=== PATIENT | female | born 1995 | race Caucasian/White ===

== ENCOUNTER 2017-11-22 09:55 | Emergency (ER) | payer MEDICAID ==
[~2017-11-22] VITALS: Ht 165.1 cm; Wt 88.5 kg
[~2017-11-22 09:55] MED LIST: AUGMENTIN 875-1 EACH PO; CIPRO500 MG PO; CONCERTA18 MG PO; HYDROCODONE-AP1 EAC6 PO; HYDROXYZINE HCL10 M1 PO; IBUPROFEN 600600 M1 PO; LEVAQUIN 500 M500 M2 PO; NOHOMEMEDICATIONS; NORCO 5-325 TA1 EACH PO; PYRIDIUM100 M1 PO; ROBAXIN500 MG PO; SINGULAIR 10 MG10 MG PO; TESSALON PERLE100 MG PO; TRAMADOL 50 MG50 MG PO; TRILEPTAL150 MG PO; ULTRAM 50MG TAB50 MG PO; ZANTAC 7575 MG PO; [UNRECOGNIZED DRUG - OTHER]
[2017-11-22 10:56] LABS: INFLUENZA A ANTIGEN None Detected (None Detect); INFLUENZA B ANTIGEN None Detected (None Detect)
[2017-11-22] MEDS ORDERED: ALLEGRA-D 12 H1 EAC1 PO (11:01)
[2017-11-22 11:40] VITALS: BP 127/89
== END 2017-11-22 11:41 | disposition home or self-care (01) ==
LOC: M.ERS 09:55
PROVIDERS: Emergency Medicine Emergency Medical Services
DX: J06.9 Acute upper respiratory infection, unspecified (principal); B87.89 Myiasis of other sites; J32.9 Chronic sinusitis, unspecified; J45.909 Unspecified asthma, uncomplicated; F10.99 Alcohol use, unspecified with unspecified alcohol-induced disorder; Z86.59 Personal history of other mental and behavioral disorders; Z98.890 Other specified postprocedural states; Z87.19 Personal history of other diseases of the digestive system; Z88.6 Allergy status to analgesic agent; Z91.018 Allergy to other foods; Z88.8 Allergy status to other drugs, medicaments and biological substances; Z87.891 Personal history of nicotine dependence

== ENCOUNTER 2017-12-30 14:55 | Emergency (ER) | payer OTHER, MEDICAID ==
[~2017-12-30] VITALS: Ht 165.1 cm; Wt 88.5 kg
[~2017-12-30 14:55] MED LIST changes: +ALLEGRA-D 12 H1 EAC1 PO
[2017-12-30 14:58] VITALS: BP 130/71
[2017-12-30] MEDS ORDERED: BUTALB-APAP-CA1 EACH PO (15:30)
[2017-12-30] MEDS ORDERED: AFRIN15 ML NASAL (15:30)
[2017-12-30] MEDS ORDERED: AMOXICILLIN 50500 MG PO (15:30)
== END 2017-12-30 15:37 | disposition home or self-care (01) ==
LOC: M.ERS 14:55
DX: J01.00 Acute maxillary sinusitis, unspecified (principal); J45.909 Unspecified asthma, uncomplicated; Z90.49 Acquired absence of other specified parts of digestive tract; Z98.890 Other specified postprocedural states; Z91.018 Allergy to other foods; Z88.6 Allergy status to analgesic agent; Z88.2 Allergy status to sulfonamides; Z88.8 Allergy status to other drugs, medicaments and biological substances; Z87.891 Personal history of nicotine dependence

== ENCOUNTER 2018-03-09 21:08 | Emergency (ER) | payer OTHER, MEDICAID ==
[~2018-03-09] VITALS: Ht 165.1 cm; Wt 88.5 kg
[~2018-03-09 21:08] MED LIST changes: +AFRIN15 ML NASAL; +AMOXICILLIN 50500 MG PO; +BUTALB-APAP-CA1 EACH PO
[2018-03-09] MEDS ORDERED: TRAMADOL 50 MG50 MG PO (21:55)
[2018-03-09 22:03] VITALS: BP 130/71
== END 2018-03-09 22:06 | disposition home or self-care (01) ==
LOC: M.ERS 21:08
DX: M25.561 Pain in right knee (principal); J45.909 Unspecified asthma, uncomplicated; Z91.018 Allergy to other foods; Z88.6 Allergy status to analgesic agent; Z88.2 Allergy status to sulfonamides; Z88.1 Allergy status to other antibiotic agents; Z87.891 Personal history of nicotine dependence

== ENCOUNTER 2018-03-10 05:16 | Emergency (ER) | payer OTHER ==
[~2018-03-10] VITALS: Ht 165.1 cm; Wt 88.5 kg
[2018-03-10 05:23] VITALS: BP 133/79
== END 2018-03-10 05:41 | disposition home or self-care (01) ==
LOC: M.ERS 05:16
DX: T74.21XA Adult sexual abuse, confirmed, initial encounter (principal); J45.909 Unspecified asthma, uncomplicated; Z87.891 Personal history of nicotine dependence; Z90.49 Acquired absence of other specified parts of digestive tract; Z88.1 Allergy status to other antibiotic agents; Z88.8 Allergy status to other drugs, medicaments and biological substances; Z91.018 Allergy to other foods; Y08.89XA Assault by other specified means, initial encounter; Y93.89 Activity, other specified; Y92.89 Other specified places as the place of occurrence of the external cause; Y99.8 Other external cause status

== ENCOUNTER 2018-04-04 21:30 | Emergency (ER) | payer OTHER, MEDICAID ==
[~2018-04-04] VITALS: Ht 165.1 cm; Wt 79.8 kg
[2018-04-04 22:07] LABS: ABSOLUTE BASOPHILS 0.1 thou/uL (0.0-0.2); ABSOLUTE EOSINOPHILS 0.1 thou/uL (0.0-0.7); ABSOLUTE LYMPHOCYTES 1.8 thou/uL (0.8-5.3); ABSOLUTE MONOCYTES 0.7 thou/uL (0.0-1.2); ABSOLUTE NEUTROPHILS 4.5 thou/uL (1.6-8.1); BASOPHILS 1.4 %; EOSINOPHILS 1.5 %; HEMATOCRIT 39.4 % (37.0-47.0); HEMOGLOBIN 13.1 gm/dL (12.0-15.0); LYMPHOCYTES 25.1 %; MCH 30.1 pg (26.0-34.0); MCHC 33.3 g/dL (28.0-37.0); MCV 90.3 fL (80.0-100.0); MONOCYTES 9.7 %; MPV 9.2 fl. (7.2-11.1); NUCLEATED RBCS 0 /100WBC; PLATELET COUNT* 170 thou/uL (150-400); POLYS 62.3 %; RBC 4.36 mil/uL (4.20-5.00); RDW-CV 13.3 % (10.5-14.5); WBC 7.3 thou/uL (4.0-11.0)
[2018-04-04 22:17] LABS: CALCIUM 8.7 mg/dL (8.5-10.1); CREATININE 0.9 mg/dL (0.6-1.3); POTASSIUM 4.1 mmol/L (3.5-5.1)
[2018-04-04 22:21] LABS: ALBUMIN 3.6 g/dL (3.4-5.0); TOTAL BILIRUBIN 0.2 mg/dL (<0.1-1.0); TOTAL PROTEIN 7.7 g/dL (6.4-8.2)
[2018-04-04 23:04] LABS: URINE BILIRUBIN NEGATIVE (Negative); URINE BLOOD TRACE (Negative); URINE CLARITY SL CLOUDY; URINE COLOR YELLOW; URINE GLUCOSE-RANDOM NEGATIVE (Negative); URINE KETONES NEGATIVE (Negative); URINE LEUKOCYTES 2+ (Negative); URINE NITRITE POSITIVE (Negative); URINE PROTEIN NEGATIVE (Negative); URINE UROBILINOGEN 0.2 E.U./dl (0.2-1.0)
[2018-04-04 23:12] LABS: BACTERIA >30 Many /HPF (None Seen); MUCUS None Seen strn/LPF (None Seen); SQUAMOUS >10 Many /LPF (0-3); URINE WBC >25 Many /HPF (0-5)
[2018-04-04 23:13] LABS: CASTS None Seen /LPF (None Seen); CRYSTALS None Seen /LPF (None Seen); URINE RBC 0-2 Rare /HPF (0-2); WBC CLUMPS Few (None Seen)
[2018-04-05] MEDS ORDERED: CIPRO500 MG PO (00:48)
[2018-04-05] MEDS ORDERED: HYDROCODONE-AP1 EAC6 PO (00:48)
[2018-04-05] MEDS ORDERED: ZOFRAN ODT4 MG PO (00:48)
[2018-04-05 01:13] VITALS: BP 157/87
== END 2018-04-05 01:17 | disposition home or self-care (01) ==
LOC: M.ERS 21:30
PROVIDERS: Physician Assistant
DX: N39.0 Urinary tract infection, site not specified (principal); J45.909 Unspecified asthma, uncomplicated; Z90.49 Acquired absence of other specified parts of digestive tract; Z88.1 Allergy status to other antibiotic agents; Z88.8 Allergy status to other drugs, medicaments and biological substances; Z91.018 Allergy to other foods; Z87.891 Personal history of nicotine dependence

== ENCOUNTER 2018-05-01 01:43 | Emergency (ER) | payer OTHER, MEDICAID ==
[~2018-05-01] VITALS: Ht 165.1 cm; Wt 80.3 kg
[~2018-05-01 01:43] MED LIST changes: +ZOFRAN ODT4 MG PO
[2018-05-01 01:56] LABS: URINE BILIRUBIN NEGATIVE (Negative); URINE BLOOD TRACE (Negative); URINE CLARITY CLEAR; URINE COLOR YELLOW; URINE GLUCOSE-RANDOM NEGATIVE (Negative); URINE KETONES NEGATIVE (Negative); URINE LEUKOCYTES-REFLEX 1+ (Negative); URINE NITRITE-REFLEX NEGATIVE (Negative); URINE PROTEIN NEGATIVE (Negative); URINE SPECIFIC GRAVITY 1.015 (1.005-1.030); URINE UROBILINOGEN 0.2 E.U./dl (0.2-1.0)
[2018-05-01 02:16] LABS: CASTS None Seen /LPF (None Seen); SQUAMOUS 0-3 Few /LPF (0-3)
[2018-05-01 02:17] LABS: CRYSTALS None Seen /LPF (None Seen); URINE RBC 3-10 Few /HPF (0-2)
[2018-05-01] MEDS ORDERED: ACETAMINOPHEN-1 EAC1 PO (04:09)
[2018-05-01] MEDS ORDERED: CARAFATE 1 GM TA1 GM PO (04:09)
[2018-05-01] MEDS ORDERED: KEFLEX500 M2 PO (04:17)
[2018-05-01 04:20] VITALS: BP 108/59
== END 2018-05-01 04:22 | disposition home or self-care (01) ==
LOC: M.ERS 01:43
PROVIDERS: Emergency Medicine
DX: K29.70 Gastritis, unspecified, without bleeding (principal); N39.0 Urinary tract infection, site not specified; Z87.891 Personal history of nicotine dependence; Z88.1 Allergy status to other antibiotic agents; Z88.8 Allergy status to other drugs, medicaments and biological substances; Z91.018 Allergy to other foods

== ENCOUNTER 2018-05-04 20:45 | Emergency (ER) | payer OTHER ==
[~2018-05-04] VITALS: Ht 165.1 cm; Wt 80.3 kg
[~2018-05-04 20:45] MED LIST changes: +ACETAMINOPHEN-1 EAC1 PO; +CARAFATE 1 GM TA1 GM PO; +KEFLEX500 M2 PO
[2018-05-04 20:49] VITALS: BP 121/71
[2018-05-04] MEDS ORDERED: PEPCID20 MG (20:54)
[2018-05-04] MEDS ORDERED: ACETAMINOPHEN-1 EAC1 PO (21:00)
[2018-05-04] MEDS ORDERED: AMOXICILLIN 50500 MG PO (21:00)
== END 2018-05-04 21:08 | disposition home or self-care (01) ==
LOC: M.ERS 20:45
DX: J02.9 Acute pharyngitis, unspecified (principal); J45.909 Unspecified asthma, uncomplicated; Z90.49 Acquired absence of other specified parts of digestive tract; Z98.890 Other specified postprocedural states; Z91.018 Allergy to other foods; Z88.6 Allergy status to analgesic agent; Z88.2 Allergy status to sulfonamides; Z88.8 Allergy status to other drugs, medicaments and biological substances; Z87.891 Personal history of nicotine dependence

== ENCOUNTER 2018-06-15 02:33 | Emergency (ER) | payer OTHER, MEDICAID ==
[~2018-06-15] VITALS: Ht 165.1 cm; Wt 79.4 kg
[~2018-06-15 02:33] MED LIST changes: +PEPCID20 MG
[2018-06-15 02:57] LABS: URINE BILIRUBIN NEGATIVE (Negative); URINE BLOOD TRACE (Negative); URINE CLARITY CLEAR; URINE COLOR YELLOW; URINE GLUCOSE-RANDOM NEGATIVE (Negative); URINE KETONES NEGATIVE (Negative); URINE LEUKOCYTES-REFLEX NEGATIVE (Negative); URINE NITRITE-REFLEX NEGATIVE (Negative); URINE PROTEIN NEGATIVE (Negative); URINE SPECIFIC GRAVITY <= 1.005 (1.005-1.030); URINE UROBILINOGEN 0.2 E.U./dl (0.2-1.0)
[2018-06-15 03:01] LABS: ABSOLUTE BASOPHILS 0.1 thou/uL (0.0-0.2); ABSOLUTE EOSINOPHILS 0.1 thou/uL (0.0-0.7); ABSOLUTE LYMPHOCYTES 3.7 thou/uL (0.8-5.3); ABSOLUTE MONOCYTES 0.6 thou/uL (0.0-1.2); ABSOLUTE NEUTROPHILS 4.9 thou/uL (1.6-8.1); BASOPHILS 1.2 %; EOSINOPHILS 0.8 %; HEMOGLOBIN 13.3 gm/dL (12.0-15.0); LYMPHOCYTES 38.9 %; MCH 30.2 pg (26.0-34.0); MCHC 33.2 g/dL (28.0-37.0); MONOCYTES 6.7 %; MPV 9.2 fl. (7.2-11.1); NUCLEATED RBCS 0 /100WBC; PLATELET COUNT* 295 thou/uL (150-400); POLYS 52.4 %; RBC 4.39 mil/uL (4.20-5.00); WBC 9.4 thou/uL (4.0-11.0)
[2018-06-15 03:04] LABS: AMP/METHAMP Negative (Negative); BARBITURATES Negative (Negative); BENZODIAZEPINES Negative (Negative); COCAINE Negative (Negative); METHADONE Negative (Negative); OPIATES Negative (Negative); PCP Negative (Negative); THC Negative (Negative)
[2018-06-15 03:06] LABS: CALCIUM 8.9 mg/dL (8.5-10.1); POTASSIUM 4.1 mmol/L (3.5-5.1)
[2018-06-15 03:11] LABS: ALBUMIN 3.6 g/dL (3.4-5.0); TOTAL BILIRUBIN 0.1 mg/dL (<0.1-1.0); TOTAL PROTEIN 8.2 g/dL (6.4-8.2)
[2018-06-15 03:16] LABS: ALCOHOL 212 mg/dL (<10); SALICYLATE 3.3 mg/dL (2.8-20.0)
[2018-06-15 03:18] LABS: ACETAMINOPHEN < 2 ug/mL (10-30)
[2018-06-15 17:15] VITALS: BP 105/59
== END 2018-06-15 17:15 ==
LOC: M.ERS 02:33
PROVIDERS: Emergency Medicine
DX: R45.851 Suicidal ideations (principal); J45.909 Unspecified asthma, uncomplicated; Z90.49 Acquired absence of other specified parts of digestive tract; Z98.890 Other specified postprocedural states; Z91.018 Allergy to other foods; Z88.6 Allergy status to analgesic agent; Z88.2 Allergy status to sulfonamides; Z88.8 Allergy status to other drugs, medicaments and biological substances; Z87.891 Personal history of nicotine dependence

== ENCOUNTER 2018-10-24 22:06 | Emergency (ER) | payer BC ==
[~2018-10-24] VITALS: Ht 165.1 cm; Wt 79.4 kg
[2018-10-24 22:34] LABS: URINE BILIRUBIN NEGATIVE (Negative); URINE BLOOD NEGATIVE (Negative); URINE CLARITY CLEAR; URINE COLOR YELLOW; URINE GLUCOSE-RANDOM NEGATIVE (Negative); URINE KETONES NEGATIVE (Negative); URINE LEUKOCYTES-REFLEX NEGATIVE (Negative); URINE NITRITE-REFLEX NEGATIVE (Negative); URINE PROTEIN NEGATIVE (Negative); URINE SPECIFIC GRAVITY <= 1.005 (1.005-1.030); URINE UROBILINOGEN 0.2 E.U./dl (0.2-1.0)
[2018-10-24 22:42] LABS: AMP/METHAMP Negative (Negative); BARBITURATES Negative (Negative); BENZODIAZEPINES Negative (Negative); COCAINE Negative (Negative); METHADONE Negative (Negative); OPIATES Negative (Negative); PCP Negative (Negative); THC Negative (Negative)
[2018-10-24 22:47] LABS: ABSOLUTE BASOPHILS 0.1 thou/uL (0.0-0.2); ABSOLUTE EOSINOPHILS 0.1 thou/uL (0.0-0.7); ABSOLUTE LYMPHOCYTES 1.8 thou/uL (0.8-5.3); ABSOLUTE MONOCYTES 0.5 thou/uL (0.0-1.2); ABSOLUTE NEUTROPHILS 5.9 thou/uL (1.6-8.1); BASOPHILS 0.9 %; EOSINOPHILS 0.8 %; HEMOGLOBIN 12.5 gm/dL (12.0-15.0); LYMPHOCYTES 21.9 %; MCH 29.8 pg (26.0-34.0); MCHC 32.9 g/dL (28.0-37.0); MCV 90.5 fL (80.0-100.0); MONOCYTES 6.5 %; NUCLEATED RBCS 0 /100WBC; PLATELET COUNT* 223 thou/uL (150-400); POLYS 69.9 %; RBC 4.19 mil/uL (4.20-5.00); WBC 8.4 thou/uL (4.0-11.0)
[2018-10-24 22:55] LABS: CALCIUM 8.6 mg/dL (8.5-10.1); CREATININE 0.9 mg/dL (0.6-1.3)
[2018-10-24 23:00] LABS: ALBUMIN 3.9 g/dL (3.4-5.0); TOTAL BILIRUBIN 0.2 mg/dL (<0.1-1.0); TOTAL PROTEIN 7.8 g/dL (6.4-8.2)
[2018-10-24 23:17] LABS: ALCOHOL 175 mg/dL (<10)
[2018-10-24 23:21] LABS: ACETAMINOPHEN < 2 ug/mL (10-30)
[2018-10-25 01:33] VITALS: BP 98/52
== END 2018-10-25 01:36 | disposition home or self-care (01) ==
LOC: M.ERS 22:06
PROVIDERS: Emergency Medicine
DX: F10.129 Alcohol abuse with intoxication, unspecified (principal); F41.9 Anxiety disorder, unspecified; Y90.0 Blood alcohol level of less than 20 mg/100 ml; J45.909 Unspecified asthma, uncomplicated; Z90.49 Acquired absence of other specified parts of digestive tract; Z98.890 Other specified postprocedural states; Z87.891 Personal history of nicotine dependence; Z88.2 Allergy status to sulfonamides; Z88.8 Allergy status to other drugs, medicaments and biological substances

== ENCOUNTER 2018-11-25 11:17 | Emergency (ER) | payer BC ==
[~2018-11-25] VITALS: Ht 165.1 cm; Wt 88.5 kg
[2018-11-25] MEDS ORDERED: SERTRALINE HCL50 MG PO (11:28)
[2018-11-25] MEDS ORDERED: BUSPIRONE HCL10 MG PO (11:29)
[2018-11-25] MEDS ORDERED: AMOXICILLIN 50500 MG PO (12:37)
[2018-11-25 12:42] VITALS: BP 130/70
== END 2018-11-25 12:42 | disposition home or self-care (01) ==
LOC: M.ERS 11:17
DX: J02.9 Acute pharyngitis, unspecified (principal); J45.909 Unspecified asthma, uncomplicated; Z90.49 Acquired absence of other specified parts of digestive tract; Z98.890 Other specified postprocedural states; Z87.891 Personal history of nicotine dependence; Z88.2 Allergy status to sulfonamides; Z88.8 Allergy status to other drugs, medicaments and biological substances